=== PATIENT | male | born 1990 | race Caucasian/White ===

== ENCOUNTER → 2019-05-15 08:54 | Outpatient (CLI) | payer OTHER, SELFPAY ==
[2019-05-15 08:47] VITALS: BMI 36.2
--- NOTE | 2019-05-15 09:00 | RAD_ITS ---
STUDY: X-RAY CHEST REASON FOR EXAM: Male, 29 years old. Contrast. TECHNIQUE: PA and lateral views of the chest. COMPARISON: None. FINDINGS: Focal consolidation in the posterior medial segment of the left lower lobe. There is no demonstrated pleural abnormality. Normal size heart. Normal mediastinum and guy. Normal visualized pulmonary arteries. Normal visualized aortic arch and descending thoracic aorta. Normal visualized thoracic spine. Normal visualized ribs, clavicles, and shoulders. There is no demonstrated abnormality of the visualized soft tissue structures of the upper abdomen. RAD/Chest PA and Lateral IMPRESSION: Focal consolidation in the posterior medial segment of the left lower lung. Electronically Signed: Gerhard Barth, at 9:39 EST , Service support ,
== END ==
PROVIDERS: Referring Provider Physician Assistant; Visit Provider Physician Assistant
DX: R05 Cough (principal)
CPT/HCPCS: 71046